=== PATIENT | female | born 2000 | race Two or more races ===

== ENCOUNTER 2024-03-27 11:20 | Emergency (ER) | payer MEDICAID, SELFPAY ==
[2024-03-27 11:21] VITALS: BMI 28.5
[2024-03-27 11:38] VITALS: BP 138/87; PULSE 98; RESP 16; TEMP 36.9; O2SAT 99
--- NOTE | 2024-03-27 11:51 | EDNOTE_ITS ---
ED Ear RME/HPI General Chief complaint: Ear Stated complaint: LEFT EAR PAIN X2DAYS, DRAINING THIS AM Time Seen by Provider: 03/27/24 11:29 Source: patient Arrival date/time: 03/27/24 11:20 This is a 23-year-old female presents to the emergency department with complaints of left ear drainage and pain x 2 days. Reports hearing popping and muffled sounds out of left ear. No fever no lethargy no decreased appetite no other symptoms reported. Mode of arrival: ambulatory Limitations: no limitations Related Data Previous Rx's ?Medication ?Instructions ?Recorded ibuprofen 600 mg tablet 600 mg PO Q6H #30 tabs 02/08/24 amoxicillin 875 mg-potassium 1 tab PO BID #14 tabs 03/27/24 clavulanate 125 mg tablet ibuprofen 800 mg tablet (IBU) 800 mg PO Q8H #20 tabs 03/27/24 ofloxacin 0.3 % ear drops 10 drp otic (ear) QDAY 7 days #5 mL 03/27/24 Allergies Allergy/AdvReac Type Severity Reaction Status Date / Time No Known Allergies Allergy Verified 03/27/24 11:22 Review of Systems Review of Systems Systems Reviewed: All systems reviewed, normal except as documented Narrative Review of Systems: Gen: No fever, no chills, no weight loss EYES: No discharge, no visual changes, no pain HEENT: ++ ear pain, no congestion, no sore throat PULM: No shortness of breath, no cough, no congestion CV: No chest pain, no dyspnea on exertion, no palpitations GI: No nausea, no vomiting, no diarrhea, no pain, no constipation : No frequency, no urgency,? no dysuria Musc/skel: No joint pain, no back pain Skin: No rash? Psyc: No hallucinations, no depression Heme/Lymph: No easy bleeding or bruising tendencies Neuro: No weakness, no headache ED Exam General Limitations: Present no limitations General appearance: Present alert and in no apparent distress Head Head exam: Present atraumatic Eye Eye exam: Present normal appearance, PERRL and EOMI ENT ENT exam: Present normal oropharynx and mucous membranes moist Expanded ENT Exam External ear exam: Present pain with movement TM/Canal exam: Left TM: erythema, effusion and canal discharge Neck Neck exam: Present normal inspection, full ROM and trachea midline Chest Chest inspection: Present normal inspection and symmetric chest wall rise Respiratory Respiratory exam: Present normal lung sounds bilaterally Cardiovascular Cardiovascular exam: Present regular rate, normal rhythm and normal heart sounds Abdominal Exam Abdominal exam: Present soft and normal bowel sounds Extremities Exam Extremities exam: Present normal inspection and full ROM Back Exam Back exam: Present normal inspection and full ROM Neurological Exam Neurological exam: Present alert, oriented X3 and CN II-XII intact Psychiatric Psychiatric exam: Present normal affect and normal mood Skin Skin exam: Present warm, dry, intact and normal color Course Quality Measures none Vital Signs Vital signs: Vital Signs Temperature 98.4 F 03/27/24 11:38 Pulse Rate 98 03/27/24 11:38 Respiratory Rate 16 03/27/24 11:38 Blood Pressure 138/87 H 03/27/24 11:38 Pulse Oximetry (%) 99 03/27/24 11:38 Oxygen Delivery Method Room Air 03/27/24 11:38 Ear Patient data External records reviewed:: [facility] previous records Clinical information provided by:: patient Social determinants that could affect healthcare access:: none Patient has the following chronic illnesses:: no How is presenting disease/condition affected by chronic disease/condition?: no chronic disease Evaluation data The following diagnostics were reviewed and interpreted by me:: other (specify) Lab and/or radiology exams considered but not ordered:: no Interpretation Summary: n/a Medications / Prescriptions Medications or Prescriptions considered but not ordered:: no Medication administrations:: no Consultations Consultation(s) initiated? (list below): No Diagnosis Ear Differential Diagnosis: otitis externa, otitis media, foreign body in ear, ruptured TM and cerumen impaction Most likely diagnosis given after review of the tests above:: Otitis external Admission Indicated Admission indicated?: not indicated Admission Request Was there a request for admission?: No Disposition Plan Disposition Plan: Discharge Discharge Attestation Discharge Attestation: The patient and all family members were given an opportunity to ask questions and understood the discharge instructions. Discharge instructions specifically effects, indications for sooner follow up or return to the emergency department, and the expected course of current diagnosis. Patient condition: Stable Discharge Plan Plan Patient Disposition: HOME (Self Care) Patient condition on transfer: Stable Prescriptions/Referrals Prescriptions/Med Rec: New ibuprofen [IBU] 800 mg tablet 800 mg PO Q8H Qty: 20 0RF ofloxacin 0.3 % drops 10 drp otic (ear) QDAY 7 Days Qty: 5 0RF amoxicillin-pot clavulanate 875-125 mg tablet 1 tab PO BID Qty: 14 0RF No Action ibuprofen 600 mg tablet 600 mg PO Q6H Qty: 30 0RF Problem List Clinical Impression: Otitis externa Patient/Caregiver Discharge Instructions Discharge Activity: as per physical therapy Education Materials: ED External Ear Infection (Adult) Additional Instructions: Please take medication as directed. Follow-up with your primary doctor for follow-up care. Return to the emergency department with any worsening symptoms any condition Print Language: Ugandan Stand Alone Forms: Miriam Award Info., Patient Portal Info Letter MD Attestation Attestation The patient was seen by the midlevel practitioner. I, the co-signing physician, was present during the entire ER visit. While I did not physically examine the patient, I was available for consultation as needed.
== END 2024-03-27 13:28 | disposition home or self-care (01) ==
PROVIDERS: Emergency Provider Emergency Medicine; PCP Family Medicine
DX: H60.92 Unspecified otitis externa, left ear (principal)
CPT/HCPCS: 99281

== ENCOUNTER 2024-03-29 18:53 | Emergency (ER) | payer MEDICAID, SELFPAY ==
[2024-03-29 19:21] VITALS: BP 142/92; PULSE 86; RESP 18; TEMP 36.7; O2SAT 100; BMI 26.5
--- NOTE | 2024-03-29 19:54 | PD.EDEAR ---
ED Ear RME/HPI General Chief complaint: Ear Stated complaint: Pretty sure she has Left Ear Infection Time Seen by Provider: 03/29/24 19:31 Arrival date/time: 03/29/24 18:53 23F with no significant PMH presents to ED with several days of L ear pain. Patient was here several days ago and given ofloxacin topical ABX and Augmentin. Limitations: no limitations Related Data Previous Rx's ?Medication ?Instructions ?Recorded ibuprofen 600 mg tablet 600 mg PO Q6H #30 tabs 02/08/24 amoxicillin 875 mg-potassium 1 tab PO BID #14 tabs 03/27/24 clavulanate 125 mg tablet ibuprofen 800 mg tablet (IBU) 800 mg PO Q8H #20 tabs 03/27/24 ofloxacin 0.3 % ear drops 10 drp otic (ear) QDAY 7 days #5 mL 03/27/24 [id number] 3.5 4 drp otic (ear) QID 10 days #10 mL 03/29/24 mg-10,000 unit/mL-1 % ear drops,susp Allergies Allergy/AdvReac Type Severity Reaction Status Date / Time No Known Allergies Allergy Verified 03/27/24 11:22 Review of Systems Review of Systems Systems Reviewed: All systems reviewed, normal except as documented Constitutional Constitutional: Reports system reviewed and no additional complaints, except as documented, Denies fever(s) and Denies headache(s) ENT Ears, Nose, Mouth, and Throat: Reports as per HPI, Denies disequilibrium, Reports ear discharge, Reports otalgia and Denies headache(s) Cardiovascular Cardiovascular: Reports system reviewed and no additional complaints, except as documented, Denies chest pain and Denies dyspnea Respiratory Respiratory: Reports system reviewed and no additional complaints, except as documented, Denies cough and Denies dyspnea Gastrointestinal Gastrointestinal: Reports system reviewed and no additional complaints, except as documented, Denies abdominal pain, Denies nausea and Denies vomiting Neurologic Neurologic: Reports system reviewed and no additional complaints, except as documented, Denies confusion, Denies disequilibrium and Denies headache(s) Psychiatric Psychiatric: Denies confusion Past Medical History Social History SMOKING STATUS: Never smoker ED Exam General Limitations: Present no limitations General appearance: Present alert and in no apparent distress Head Head exam: Present atraumatic Eye Eye exam: Present normal appearance, PERRL and EOMI ENT ENT exam: Present normal oropharynx and mucous membranes moist Expanded ENT Exam External ear exam: Present external tenderness (L tragal) TM/Canal exam: Left TM: canal discharge and canal tenderness Neck Neck exam: Present normal inspection, full ROM and trachea midline Chest Chest inspection: Present normal inspection and symmetric chest wall rise Respiratory Respiratory exam: Present normal lung sounds bilaterally Cardiovascular Cardiovascular exam: Present regular rate, normal rhythm and normal heart sounds Abdominal Exam Abdominal exam: Present soft and normal bowel sounds Extremities Exam Extremities exam: Present normal inspection and full ROM Back Exam Back exam: Present normal inspection and full ROM Neurological Exam Neurological exam: Present alert, oriented X3 and CN II-XII intact Psychiatric Psychiatric exam: Present normal affect and normal mood Skin Skin exam: Present warm, dry, intact and normal color Course Quality Measures none Vital Signs Vital signs: Vital Signs Temperature 98.1 F 03/29/24 19:21 Pulse Rate 86 03/29/24 19:21 Respiratory Rate 18 03/29/24 19:21 Blood Pressure 142/92 H 03/29/24 19:21 Pulse Oximetry (%) 100 03/29/24 19:21 Oxygen Delivery Method Room Air 03/29/24 19:21 O2 at 100% on RA and WNLs Ear MDM Narrative MDM Narrative:: 23F with no significant PMH presents to ED with several days of L ear pain. Patient was here several days ago and given ofloxacin topical ABX and Augmentin. Physical exam reveals L tragal tenderness. External canal discharge. TMs normal. Patient is afebrile, calm, and alert. Likely OE. Will switch ofloxacin with Neomycin due to steroid inclusion in latter, as well as QID dosing. Former is likely dripping out of ear as it is 10 drops QDAY. Patient data External records reviewed:: [facility] previous records Clinical information provided by:: patient Social determinants that could affect healthcare access:: none Patient has the following chronic illnesses:: none How is presenting disease/condition affected by chronic disease/condition?: no chronic disease Evaluation data The following diagnostics were reviewed and interpreted by me:: other (specify) (none) Lab and/or radiology exams considered but not ordered:: not ordered Interpretation Summary: n/a Medications / Prescriptions Medications or Prescriptions considered but not ordered:: not ordered Medication administrations:: n/a Consultations Consultation(s) initiated? (list below): No Diagnosis Ear Differential Diagnosis: otitis externa, otitis media, foreign body in ear, ruptured TM and cerumen impaction Most likely diagnosis given after review of the tests above:: OE Admission Indicated Admission indicated?: not indicated Admission Request Was there a request for admission?: No Disposition Plan Disposition Plan: Discharge Discharge Attestation Discharge Attestation: The patient and all family members were given an opportunity to ask questions and understood the discharge instructions. Discharge instructions specifically effects, indications for sooner follow up or return to the emergency department, and the expected course of current diagnosis. Patient condition: Stable Discharge Plan Plan Patient Disposition: HOME (Self Care) Disposition Comment: Stable Prescriptions/Referrals Prescriptions/Med Rec: New [id number]-[id number]-[id number] 3.5-10,000-1 mg/mL-unit/mL-% drops,suspension 4 drp otic (ear) QID 10 Days Qty: 10 0RF No Action ibuprofen [IBU] 800 mg tablet 800 mg PO Q8H Qty: 20 0RF ofloxacin 0.3 % drops 10 drp otic (ear) QDAY 7 Days Qty: 5 0RF amoxicillin-pot clavulanate 875-125 mg tablet 1 tab PO BID Qty: 14 0RF ibuprofen 600 mg tablet 600 mg PO Q6H Qty: 30 0RF Problem List Clinical Impression: Otitis externa Patient/Caregiver Discharge Instructions Additional Instructions: Please follow-up with PCP within 24-48 hours and return immediately if symptoms worsen. Stop old ear drop and use new one. Make sure to keep in ear at least 1 min each time. Print Language: Azeri Stand Alone Forms: Patient Portal Info Letter JOSE/MARZENA Supervising Physician AGGIE Supervising Physician: Dr. Aleman
== END 2024-03-29 19:41 | disposition home or self-care (01) ==
LOC: SERX 19:35
PROVIDERS: Emergency Provider Emergency Medicine
DX: H60.92 Unspecified otitis externa, left ear (principal)
CPT/HCPCS: 99281